=== PATIENT | male | born 1945 | race Caucasian/White ===

== ENCOUNTER 2017-03-22 19:21 | Observation (INO) | payer OTHER ==
[~2017-03-22] VITALS: Ht 170.2 cm; Wt 95.0 kg
[~2017-03-22 19:21] MED LIST: CYCL-36 PO; GABA300C3 PO; HYDR-3129 PO; PROT40TA PO; ZOLP10TA3 PO
[2017-03-22 19:29] VITALS: BP 112/65; PULSE 60; RESP 14; TEMP 98.9; O2SAT 94
[2017-03-22 19:40] VITALS: RESP 16; O2SAT 95
[2017-03-22] MEDS ORDERED: SODIUM CHLOR 0.9% 1000 ML INJ 1,000 ML IV ONE (19:49)
[2017-03-22] MEDS ORDERED: SODIUM CHLORIDE 0.9% FLUSH 10 ML FLUSH IVF PRN (20:00)
--- NOTE | 2017-03-22 20:20 | RADRPT ---
EXAM DATE/TIME: 03/22/2017 19:58 [facility] COMPARISON: No previous studies available for comparison. INDICATIONS : Short of breath. Weakness. MEDICAL HISTORY : None. SURGICAL HISTORY : Fusion, cervical. ENCOUNTER: Initial ACUITY: 1 day PAIN SCORE: 0/10 LOCATION: Bilateral chest FINDINGS: A single view of the chest demonstrates the lungs to be symmetrically aerated without evidence of mas s, infiltrate or effusion. The cardiomediastinal contours are unremarkable. Osseous structures are intact. CONCLUSION: No evidence of acute cardiopulmonary disease. Cory Mosquera MD on March 22, 2017 at 20:18 Board Certified Radiologist. This report was verified electronically.
--- NOTE | 2017-03-22 20:21 | PD ---
HPI Chief Complaint: General Weakness Time Seen by Provider: 19:49 Travel History International Travel<30 days: No Contact w/Intl Traveler<30days: No Traveled to known affect area: No History of Present Illness HPI This 71-year-old man, presents to the emergency department after syncopal episode. Reports he is feeling well, at home, on the commode. Strain to have a bowel movement. Got up to walk to the bedroom and reportedly passed out. Unclear if he hit his head or not. EMS was called. Patient states at this point he feels lightheaded and weak. He is a little bit of posterior headache. No chest pain, no trouble breathing. No vertigo. He otherwise had been feeling generally well and healthy. Denies any dark black stool or blood in his stool. No history of previous similar symptoms. History Past Medical History Narrative Medical Hyperlipidemia Neuropathy Social History Alcohol Use: No Tobacco Use: No Allergies-Medications (Allergen,Severity, Reaction): Coded Allergies: ciprofloxacin (Unverified Allergy, Unknown, 11/10/16) DIZZY Reported Meds & Prescriptions Reported Meds & Active Scripts Active Flexeril (Cyclobenzaprine HCl) 10 Mg Tab 10 Mg PO Q8 PRN Bryan 10/325 (Hydrocodone-Acetaminophen 10/325) 1 Tab Tab 1 Tab PO Q6H PRN Reported Protonix (Pantoprazole Sodium) 40 Mg Tabdr 40 Mg PO DAILY Ambien 10 Mg Tab (Zolpidem Tartrate) 10 Mg Tab 10 Mg PO HS Gabapentin 300 Mg Cap 300 Mg PO TID Review of Systems Except as stated in HPI: all other systems reviewed are Neg Physical Exam Narrative GENERAL: 71-year-old man, appears a little bit pale, somewhat clammy. SKIN: Pale clammy HEAD: Atraumatic. Normocephalic. EYES: Pupils equal and round. No scleral icterus. No injection or drainage. ENT: No nasal bleeding or discharge. Mucous membranes pink and moist. NECK: Trachea midline. No JVD. CARDIOVASCULAR: Heart rate slow, regular. Pulses symmetric and equal all 4 extremities. RESPIRATORY: No accessory muscle use. Clear to auscultation. Breath sounds equal bilaterally. GASTROINTESTINAL: Abdomen soft, non-tender, nondistended. Hepatic and splenic margins not palpable. MUSCULOSKELETAL: No obvious deformities. No edema. NEUROLOGICAL: Awake, but somewhat decreased alertness. Keep his eyes closed but answers questions easily.. Cranial nerves II through XII are intact. No nystagmus. Strength full and equal upper and lower extremities. Normal finger to nose. Normal [id number]. Sensation intact throughout. Normal speech. PSYCHIATRIC: Appropriate mood and affect; insight and judgment normal. Data Data Last Documented VS Vital Signs Date Time Temp Pulse Resp B/P (MAP) Pulse Ox O2 Delivery O2 Flow Rate FiO2 03/22/17 19:40 16 95 Room Air 03/22/17 19:29 98.9 60 112/65 (81) Orders Orders Electrocardiogram (03/22/17 19:49) Complete Blood Count With Diff (03/22/17 19:49) Comprehensive Metabolic Panel (03/22/17 19:49) Magnesium (Mg) (03/22/17 19:49) Troponin I (03/22/17 19:49) Chest, Single Ap (03/22/17 19:49) Ct Brain W/O Iv Contrast(Rout) (03/22/17 19:49) Blood Glucose (03/22/17 19:49) Ecg Monitoring (03/22/17 19:49) Iv Access Insert/Monitor (03/22/17 19:49) Oximetry (03/22/17 19:49) Sodium Chloride 0.9% Flush (Ns Flush) (03/22/17 20:00) Sodium Chlor 0.9% 1000 Ml Inj (Ns 1000 M (03/22/17 19:49) Ondansetron Inj (Zofran Inj) (03/22/17 20:33) Ondansetron Inj (Zofran Inj) (03/22/17 20:45) Place In Observation (03/22/17 ) Vital Signs (Adult) Q4H (03/22/17 21:52) Foam Molder / Telemetry ESTER.Q8H (03/22/17 21:52) Intake + Output ESTER.QSHIFT (03/22/17 21:52) Neuro Checks Q4H (03/22/17 21:52) Diet Heart Healthy (03/23/17 Breakfast) Sodium Chloride 0.9% Flush (Ns Flush) (03/22/17 22:00) Sodium Chloride 0.9% Flush (Ns Flush) (03/23/17 09:00) Complete Blood Count With Diff (03/23/17 06:00) Basic Metabolic Panel (Bmp) (03/23/17 06:00) Echo 2d Comp With Doppler (03/22/17 ) Us Carotid Arteries Comp Bilat (03/22/17 ) Orthostatic Blood Pressure (03/22/17 21:53) ^ Other Nursing Orders (03/22/17 21:54) Admit Order (Ed Use Only) (03/22/17 ) Labs Laboratory Tests Test 03/22/17 19:45 White Blood Count 8.6 TH/MM3 Red Blood Count 4.99 MIL/MM3 Hemoglobin 15.1 GM/DL Hematocrit 43.2 % Mean Corpuscular Volume 86.6 FL Mean Corpuscular Hemoglobin 30.2 PG Mean Corpuscular Hemoglobin Concent 34.9 % Red Cell Distribution Width 13.9 % Platelet Count 198 TH/MM3 Mean Platelet Volume 7.7 FL Neutrophils (%) (Auto) 69.2 % Lymphocytes (%) (Auto) 25.8 % Monocytes (%) (Auto) 3.9 % Eosinophils (%) (Auto) 0.5 % Basophils (%) (Auto) 0.6 % Neutrophils # (Auto) 5.9 TH/MM3 Lymphocytes # (Auto) 2.2 TH/MM3 Monocytes # (Auto) 0.3 TH/MM3 Eosinophils # (Auto) 0.0 TH/MM3 Basophils # (Auto) 0.0 TH/MM3 CBC Comment DIFF FINAL Differential Comment Blood Urea Nitrogen 15 MG/DL Creatinine 1.07 MG/DL Random Glucose 128 MG/DL Total Protein 7.3 GM/DL Albumin 3.2 GM/DL Calcium Level 8.4 MG/DL Magnesium Level 2.0 MG/DL Alkaline Phosphatase 139 U/L Aspartate Amino Transf (AST/SGOT) 26 U/L Alanine Aminotransferase (ALT/SGPT) 30 U/L Total Bilirubin 0.7 MG/DL Sodium Level 138 MEQ/L Potassium Level 3.8 MEQ/L Chloride Level 106 MEQ/L Carbon Dioxide Level 24.6 MEQ/L Anion Gap 7 MEQ/L Estimat Glomerular Filtration Rate 68 ML/MIN Troponin I LESS THAN 0.02 NG/ML MDM Medical Decision Making Medical Screen Exam Complete: Yes Emergency Medical Condition: Yes Interpretation(s) My review of EKG: Sinus bradycardia at a rate of 55, first-degree AV block with a CA interval 214, normal axis, normal no acute ischemia. LABS: CBC unremarkable. CMP unremarkable. Troponin negative. Head CT: No acute intracranial abnormality. Chest x-ray: No evidence of acute cardiopulmonary disease. Differential Diagnosis Symptomatic bradycardia, vasovagal episode, GI bleed, dehydration, hypotension, other Narrative Course Medical decision-making 70 year-old woman presents emergent department a single episode of syncope associated with lightheadedness. Looks a little bit dehydrated, little bit clammy. EKG shows her to cardio first-degree AV block. Return to the patient' s medications. Denies being on any negative chronotropic. Denies any history of hypertension. We'll check labs, reassess. FINAL: Initial workup negative. Given patient's age, we'll recommend observation for syncope. Diagnosis Primary Impression: Syncope Mike Trujillo MD Mar 22, 2017 20:21
--- NOTE | 2017-03-22 20:29 | RADRPT ---
EXAM DATE/TIME: 03/22/2017 20:12 [facility] COMPARISON: No previous studies available for comparison. INDICATIONS : Syncopal episode. RADIATION DOSE: 56.35 CTDIvol (mGy) MEDICAL HISTORY : None SURGICAL HISTORY : Back. ENCOUNTER: Initial ACUITY: 1 day PAIN SCALE: 0/10 LOCATION: cranial TECHNIQUE: Multiple contiguous axial images were obtained of the head. Using automated exposure control and adj ustment of the mA and/or kV according to patient size, radiation dose was kept as low as reasonably a chievable to obtain optimal diagnostic quality images. DICOM format image data is available electro nically for review and comparison. FINDINGS: CEREBRUM: The ventricles are normal for age. No evidence of midline shift, mass lesion, hemorrhage or acute in farction. No extra-axial fluid collections are seen. POSTERIOR FOSSA: The cerebellum and brainstem are intact. The 4th ventricle is midline. The cerebellopontine angle i s unremarkable. EXTRACRANIAL: 17 mm right maxillary mucous retention cyst. SKULL: The calvaria is intact. No evidence of skull fracture. CONCLUSION: No acute intracranial abnormality demonstrated. Cory Mosquera MD on March 22, 2017 at 20:27 Board Certified Radiologist. This report was verified electronically.
[2017-03-22] MEDS ORDERED: ONDANSETRON HCL 4 MG/2 ML VIAL ONE (20:33)
[2017-03-22] MEDS ORDERED: ONDANSETRON HCL 4 MG/2 ML VIAL IV ONE (20:45)
[2017-03-22 20:48] LABS: AUTOMATED NEUTROPHIL # 5.9 TH/MM3 (1.8-7.7); BASOPHIL % 0.6 % (0.0-2.0); EOSINOPHIL % 0.5 % (0.0-4.0); HEMATOCRIT 43.2 % (39.0-51.0); HEMOGLOBIN 15.1 GM/DL (13.0-17.0); LYMPH % 25.8 % (9.0-44.0); LYMPHOCYTE # 2.2 TH/MM3 (1.0-4.8); MEAN CELL VOLUME 86.6 FL (80.0-100.0); MEAN CORPUSCULAR HEMOGLOBIN 30.2 PG (27.0-34.0); MEAN CORPUSCULAR HGB CONC 34.9 % (32.0-36.0); MEAN PLATELET VOLUME 7.7 FL (7.0-11.0); MONO % 3.9 % (0.0-8.0); MONOCYTE # 0.3 TH/MM3 (0-0.9); NEUT % 69.2 % (16.0-70.0); PLATELET COUNT 198 TH/MM3 (150-450); RED BLOOD COUNT 4.99 MIL/MM3 (4.50-5.90); RED CELL DISTRIBUTION WIDTH 13.9 % (11.6-17.2); WHITE BLOOD COUNT 8.6 TH/MM3 (4.0-11.0)
[2017-03-22 21:07] LABS: ALBUMIN 3.2 GM/DL (3.4-5.0); AST (GOT) 26 U/L (15-37); BICARBONATE 24.6 MEQ/L (21.0-32.0); BLOOD UREA NITROGEN 15 MG/DL (7-18); CALCIUM 8.4 MG/DL (8.5-10.1); CHLORIDE 106 MEQ/L (98-107); CREATININE 1.07 MG/DL (0.60-1.30); GLOMERULAR FILTRATION RATE 68 ML/MIN (>89); GLUCOSE,RANDOM 128 MG/DL (74-106); SODIUM (NA) 138 MEQ/L (136-145)
[2017-03-22 21:13] LABS: ALKALINE PHOSPHATASE 139 U/L (45-117); ALT (GPT) 30 U/L (12-78); TOTAL BILIRUBIN ADULT 0.7 MG/DL (0.2-1.0); TOTAL PROTEIN 7.3 GM/DL (6.4-8.2); TROPONIN I LESS THAN 0.02 NG/ML (0.02-0.05)
[2017-03-22] MEDS ORDERED: SODIUM CHLORIDE 0.9% FLUSH 10 ML FLUSH IV FLUSH PRN (22:00)
--- NOTE | 2017-03-22 23:10 | HHI.HP ---
[facility] Mateusz Hurtado MD Admission Diagnosis syncope Diagnoses: Travel History International Travel<30 Days: No Contact w/Intl Traveler <30 Da: No Traveled to Known Affected Are: No History of Present Illness 71-year-old male with a past medical history significant for hyperlipidemia, GERD and restless leg syndrome presents to the emergency department after suffering a syncopal event. The patient was straining with defecation when he felt lightheaded and lost consciousness. He denies falling as his partner was able to catch him. He reports he continued to feel dizzy and lightheaded after the incident. He laid down for a little while but the feeling did not resolve. He reports he is much improved at this time. He denies any associated chest pain or shortness of breath. Review of Systems Denies fever or chills Denies blurry vision, otorrhea, rhinorrhea Denies sore throat and cough No chest pain, palpitations, shortness of breath No abdominal pain Denies constipation/diarrhea/nausea/vomiting Denies muscle pain/weakness No rashes Past Family Social History Past Medical History OA RLS HLD GERD Past Surgical History Bilateral knee replacement Left back fusion Neck fusion Left ankle surgery Reported Medications Reported Meds & Active Scripts Active Flexeril (Cyclobenzaprine HCl) 10 Mg Tab 10 Mg PO Q8 PRN Harwood 10/325 (Hydrocodone-Acetaminophen 10/325) 1 Tab Tab 1 Tab PO Q6H PRN Reported Protonix (Pantoprazole Sodium) 40 Mg Tabdr 40 Mg PO DAILY Ambien 10 Mg Tab (Zolpidem Tartrate) 10 Mg Tab 10 Mg PO HS Gabapentin 300 Mg Cap 300 Mg PO TID Allergies: Coded Allergies: ciprofloxacin (Unverified Allergy, Unknown, 11/10/16) DIZZY Family History Father of [place] at age 62. Social History Denies tobacco. Rare alcohol. Denies illicit drugs. Physical Exam Vital Signs Vital Signs Date Time Temp Pulse Resp B/P (MAP) Pulse Ox O2 Delivery O2 Flow Rate FiO2 03/22/17 19:40 16 95 Room Air 03/22/17 19:29 98.9 60 14 112/65 (81) 94 Physical Exam GENERAL: Obese, male lying in bed SKIN: No rashes, ecchymoses or lesions. Cool and dry. HEAD: Atraumatic. Normocephalic. No temporal or scalp tenderness. EYES: Pupils equal round and reactive. Extraocular motions intact. No scleral icterus. No injection or drainage. ENT: Nose without bleeding, purulent drainage or septal hematoma. Throat without erythema, tonsillar hypertrophy or exudate. Uvula midline. Airway patent. NECK: Trachea midline. No JVD or lymphadenopathy. Supple, nontender, no meningeal signs. CARDIOVASCULAR: Regular rate and rhythm without murmurs, gallops, or rubs. RESPIRATORY: Clear to auscultation. Breath sounds equal bilaterally. No wheezes , rales, or rhonchi. GASTROINTESTINAL: Abdomen soft, non-tender, nondistended. No hepato-splenomegaly , or palpable masses. No guarding. MUSCULOSKELETAL: Extremities without clubbing, cyanosis, or edema. No joint tenderness, effusion, or edema noted. No calf tenderness. NEUROLOGICAL: Awake and alert. Cranial nerves II through XII intact. Motor and sensory grossly within normal limits. Normal speech. Laboratory Laboratory Tests Test 03/22/17 19:45 White Blood Count 8.6 Red Blood Count 4.99 Hemoglobin 15.1 Hematocrit 43.2 Mean Corpuscular Volume 86.6 Mean Corpuscular Hemoglobin 30.2 Mean Corpuscular Hemoglobin Concent 34.9 Red Cell Distribution Width 13.9 Platelet Count 198 Mean Platelet Volume 7.7 Neutrophils (%) (Auto) 69.2 Lymphocytes (%) (Auto) 25.8 Monocytes (%) (Auto) 3.9 Eosinophils (%) (Auto) 0.5 Basophils (%) (Auto) 0.6 Neutrophils # (Auto) 5.9 Lymphocytes # (Auto) 2.2 Monocytes # (Auto) 0.3 Eosinophils # (Auto) 0.0 Basophils # (Auto) 0.0 CBC Comment DIFF FINAL Differential Comment Blood Urea Nitrogen 15 Creatinine 1.07 Random Glucose 128 Total Protein 7.3 Albumin 3.2 Calcium Level 8.4 Magnesium Level 2.0 Alkaline Phosphatase 139 Aspartate Amino Transf (AST/SGOT) 26 Alanine Aminotransferase (ALT/SGPT) 30 Total Bilirubin 0.7 Sodium Level 138 Potassium Level 3.8 Chloride Level 106 Carbon Dioxide Level 24.6 Anion Gap 7 Estimat Glomerular Filtration Rate 68 Troponin I LESS THAN 0.02 Result Diagram: 03/22/17194403/22/171944 Caprini VTE Risk Assessment Caprini VTE Risk Assessment: Mod/High Risk (score >= 2) Caprini Risk Assessment Model Point Value = 1 Point Value = 2 Point Value = 3 Point Value = 5 Age 41-60 Minor surgery BMI > 25 kg/m2 Swollen legs Varicose veins or History of unexplained or recurrent spontaneous Oral contraceptives or hormone replacement Sepsis (< 1 month) Serious lung disease, including pneumonia (< 1 month) Abnormal pulmonary function Acute myocardial infarction Congestive heart failure (< 1 month) History of inflammatory bowel disease Medical patient at bed rest Age 61-74 Arthroscopic surgery Major open surgery (> 45 min) Laparoscopic surgery (> 45 min) Malignancy Confined to bed (> 72 hours) Immobilizing plaster cast Central venous access Age >= 75 History of VTE Family history of VTE Factor V Leiden Prothrombin [id number] Lupus anticoagulant Anticardiolipin antibodies Elevated serum homocysteine Heparin-induced thrombocytopenia Other congenital or acquired thrombophilia Stroke (< 1 month) Elective arthroplasty Hip, pelvis, or leg fracture Acute spinal cord injury (< 1 month) Prophylaxis Regimen Total Risk Factor Score Risk Level Prophylaxis Regimen 0-1 Low Early ambulation 2 Moderate Order ONE of the following: *Sequential Compression Device (SCD) *Heparin 5000 units SQ BID 3-4 Higher Order ONE of the following medications: *Heparin 5000 units SQ TID *Enoxaparin/Lovenox 40 mg SQ daily (WT < 150 kg, CrCl > 30 mL/min) *Enoxaparin/Lovenox 30 mg SQ daily (WT < 150 kg, CrCl > 10-29 mL/min) *Enoxaparin/Lovenox 30 mg SQ BID (WT < 150 kg, CrCl > 30 mL/min) AND/OR *Sequential Compression Device (SCD) 5 or more Highest Order ONE of the following medications: *Heparin 5000 units SQ TID (Preferred with Epidurals) *Enoxaparin/Lovenox 40 mg SQ daily (WT < 150 kg, CrCl > 30 mL/min) *Enoxaparin/Lovenox 30 mg SQ daily (WT < 150 kg, CrCl > 10-29 mL/min) *Enoxaparin/Lovenox 30 mg SQ BID (WT < 150 kg, CrCl > 30 mL/min) AND *Sequential Compression Device (SCD) Assessment and Plan Assessment and Plan Assessment/plan: 1. Syncope Suspect secondary to vasovagal response during defecation Carotid ultrasound/Echo pending 2. GERD Continue home pantoprazole once medication reconciliation complete 3. RLS Continue home gabapentin FEN Heart healthy diet Electrolytes: monitor and replete prn Heparin Nilam Brar MD Mar 22, 2017 23:10
[2017-03-22] MEDS ORDERED: ATOR40TA16 PO (23:56)
[2017-03-23 00:03] VITALS: PULSE 71
[2017-03-23 03:15] VITALS: BP 121/68; PULSE 68; RESP 18; TEMP 98.2; O2SAT 97
[2017-03-23 03:21] VITALS: PULSE 72
[2017-03-23 05:06] VITALS: BP_SYST 109; BP_SYST 123; BP_SYST 98; BP_DIAS 59; BP_DIAS 62; BP_DIAS 67; PULSE 69; RESP 18; TEMP 98.2; O2SAT 97
[2017-03-23] MEDS ORDERED: HEPARIN SODIUM - SQ 10,000 UNITS/ML VIAL SQ SCH (06:00)
[2017-03-23 08:00] VITALS: PULSE 72
--- NOTE | 2017-03-23 08:06 | RADRPT ---
EXAM DATE/TIME: 03/23/2017 07:36 [facility] COMPARISON: No previous studies available for comparison. INDICATIONS : Syncope. MEDICAL HISTORY : Gastroesophageal reflux disease. Osteoarthritis. Hyperlipidemia. Neuropathy. SURGICAL HISTORY : Bilateral knee replacements. Back surgery. ENCOUNTER: Initial ACUITY: 1 day PAIN SCORE: 0/10 LOCATION: Bilateral neck PEAK SYSTOLIC VELOCITIES (cm/sec): ICA/CCA RATIO: Right: 0.8 Left: 0.8 ICA: Right: 75 Left: 71 CCA: Right: 98 Left: 91 ECA: Right: 102 Left: 84 VERTEBRAL: Right: 42 antegrade Left: 45 antegrade Elevated flow velocities and ICA/CCA ratios have been found to correlate with increased degrees of vessel stenosis, calculated as percentage of diameter relative to a normal segment of distal ICA/CCA FINDINGS: RIGHT CAROTID: No significant stenosis is visualized. The waveforms are within normal limits. LEFT CAROTID: No significant stenosis is visualized. The waveforms are within normal limits. VERTEBRAL ARTERIES: Antegrade flow is seen in both vertebral arteries. MISCELLANEOUS: None. CONCLUSION: No evidence of flow-limiting carotid stenosis. Cory Higginbotham MD on March 23, 2017 at 8:04 Board Certified Radiologist. This report was verified electronically.
[2017-03-23] MEDS ORDERED: GABAPENTIN 300 MG CAP PO SCH (09:00)
[2017-03-23] MEDS ORDERED: ATORVASTATIN 40 MG TAB PO SCH (09:00)
[2017-03-23] MEDS ORDERED: PANTOPRAZOLE SOD 40 MG DELAYED RELEASE TAB PO SCH (09:00)
[2017-03-23] MEDS ORDERED: SODIUM CHLORIDE 0.9% FLUSH 10 ML FLUSH IV FLUSH SCH (09:00)
--- NOTE | 2017-03-23 09:58 | HHI.DCPOC ---
Discharge Care Plan Diagnosis: (1) Syncope Goals to Promote Your Health * To prevent worsening of your condition and complications * To maintain your health at the optimal level Directions to Meet Your Goals Take your medications as prescribed Follow your dietary instruction Follow activity as directed Keep your appointments as scheduled Take your immunizations and boosters as scheduled If your symptoms worsen call your PCP, if no PCP go to Urgent Care Center or Emergency Room Smoking is Dangerous to Your Health. Avoid second hand smoke Call the 24-hour hour crisis hotline for domestic abuse at Analy Aguilar PA-C Mar 23, 2017 09:58
--- NOTE | 2017-03-23 11:03 | HHI.PR ---
Subjective Remarks Follow up for syncope. The patient explains that yesterday he didn't eat much throughout the day, no breakfast, then had a sub from [facility] that "didn't sit well" with him and his stomach didn't feel right throughout the day. Last night he sat down on the toilet, had a large mixed hard stool and diarrhea bowel movement, became acutely lightheaded and passed out. This morning he feels much better. He states he has some mild lightheadedness but he is used to this due to his chronic vertigo. He wants to go home. Discussed stopping his gabapentin for now, patient agrees. Also discussed his positive orthostatics, counseled on slow transition and wearing tamera hose, patient verbalized understanding. He plans to follow up with his PCP Dr. Hurtado. He has no other medical complaints at this time including no headache, chest pain, palpitations, shortness of breath, or abdominal complaints. Objective Vitals Vital Signs Date Time Temp Pulse Resp B/P (MAP) Pulse Ox O2 Delivery O2 Flow Rate FiO2 03/23/17 05:06 98.2 69 18 123/59 (80) 97 109/67 (81) 98/62 (74) 03/23/17 03:21 72 03/23/17 03:15 98.2 68 18 121/68 (85) 97 03/23/17 00:03 71 03/22/17 19:40 16 95 Room Air 03/22/17 19:29 98.9 60 14 112/65 (81) 94 Result Diagram: 03/22/17194403/22/171944 Imaging Last Impressions Carotid Artery Ultrasound 03/23/17 0000 Signed Impressions: Service Date/Time: Thursday, March 23, 2017 07:36 - CONCLUSION: No evidence of flow-limiting carotid stenosis. Cory Higginbotham MD Head CT 03/22/171948 Signed Impressions: Service Date/Time: Wednesday, March 22, 2017 20:12 - CONCLUSION: No acute intracranial abnormality demonstrated. Cory Mosquera MD Chest X-Ray 03/22/171948 Signed Impressions: Service Date/Time: Wednesday, March 22, 2017 19:58 - CONCLUSION: No evidence of acute cardiopulmonary disease. Cory Mosquera MD Objective Remarks GENERAL: Well-nourished, well-developed pleasant elderly male patient in NAD. SKIN: Warm and dry. No rash. HEENT: Normocephalic. Atraumatic. Pupils equal and round. Mucous membranes pink and moist. CARDIOVASCULAR: Regular rate and rhythm. S1, S2 noted. No murmur appreciated. RESPIRATORY: No accessory muscle use. Clear to auscultation. Breath sounds equal bilaterally. GASTROINTESTINAL: Abdomen soft, non-tender, nondistended. Normoactive bowel sounds x4. MUSCULOSKELETAL: No obvious deformities. Extremities without clubbing, cyanosis , or edema. NEUROLOGICAL: Awake and alert. No obvious cranial nerve deficits. Motor grossly within normal limits. 5/5 muscle strength in bilateral upper and lower extremities. Normal speech. PSYCHIATRIC: Appropriate mood and affect; insight and judgment normal. Medications and IVs Current Medications Medications (Trade) Dose Ordered Sig/Juan Route Start Time Stop Time Status Last Admin (NS Flush) 2 ml UNSCH PRN IV FLUSH 03/22/17 22:00 (NS Flush) 2 ml BID IV FLUSH 03/23/17 09:00 03/23/17 10:18 (Heparin Inj) 5,000 units Q8HR SQ 03/23/17 06:00 03/23/17 05:12 (Lipitor) 40 mg DAILY PO 03/23/17 09:00 03/23/17 10:17 (Protonix) 40 mg DAILY PO 03/23/17 09:00 03/23/17 10:17 (Ambien) 10 mg HS PO 03/23/17 21:00 A/P Problem List: (1) Syncope ICD Code: R55 - Syncope and collapse Status: Acute Assessment and Plan 71-year-old male with history of Restless Leg Syndrome, GERD, HLD, OA, presents after syncopal event Syncope: Strongly suspect secondary to vasovagal response during defecation, patient straining with large BM just prior to event. -Carotid U/S unremarkable -Echocardiogram completed, unremarkable with EF 50-55% -Orthostatics mildly positive, counseled patient on slow transitions and tamera hose, patient verbalized understanding -Patient's gabapentin also possibly contributing to symptoms, discussed with patient to stop medication for now, he verbalized understanding -Consult PT for eval, patient uses walker at baseline at home -Symptoms much improved, stable for discharge GERD: Chronic, Continue home pantoprazole. RLS: Discontinued home gabapentin as above, recommended outpatient f/up with PCP prior to initiating any new medications. Discharge Planning Discharge patient to home Condition on discharge: Improved Regular Diet as tolerated Ad Margarita activity Rx written: discontinued gabapentin Follow-up with primary care physician Dr. Hurtado within 2-3 days Analy Aguilar PA-C Mar 23, 2017 11:03
[2017-03-23 11:45] LABS: BICARBONATE 25.2 MEQ/L (21.0-32.0); CALCIUM 8.4 MG/DL (8.5-10.1); CREATININE 0.88 MG/DL (0.60-1.30)
--- NOTE | 2017-03-23 12:35 | ECHRPT ---
Indication: SYNCOPE CONCLUSIONS Technically very very difficult studay. Normal left ventricular size. Wall thickness is normal. Regional wall motion abnormalities cannot be excluded. The left ventricular systolic function is low normal with an estimated ejection fraction in the rang e of 50- 55%. No definite valvular abnormalities are noted. BP: 129 / 59 HR: 72 Rhythm: MEASUREMENTS (Male / Female) Normal Values Technical Quality:Technically difficult study 2D ECHO LV Diastolic Diameter PLAX 4.7 cm 4.2 - 5.9 / 3.9 - 5.3 cm LV Systolic Diameter PLAX 3.7 cm IVS Diastolic Thickness 0.9 cm 0.6 - 1.0 / 0.6 - 0.9 cm LVPW Diastolic Thickness 0.8 cm 0.6 - 1.0 / 0.6 - 0.9 cm LV Relative Wall Thickness 0.4 LA Systolic Diameter LX 4.2 cm 3.0 - 4.0 / 2.7 - 3.8 cm M-MODE Aortic Root Diameter MM 3.5 cm AV Cusp Separation MM 1.7 cm DOPPLER Mitral E Point Velocity 82.9 cm/s Mitral A Point Velocity 104.0 cm/s Mitral E to A Ratio 0.8 TR Peak Velocity 117.0 cm/s TR Peak Gradient 5.5 mmHg FINDINGS LEFT VENTRICLE Technically very very difficult studay. Normal left ventricular size. Wall thickness is normal. Regional wall motion abnormalities cannot be excluded. The left ventricular systolic function is low normal with an estimated ejection fraction in the rang e of 50- 55%. RIGHT VENTRICLE Normal right ventricular size and systolic function. LEFT ATRIUM The left atrial size is normal. RIGHT ATRIUM The right atrial size is normal. ATRIAL SEPTUM Normal atrial septal thickness without atrial level shunting by limited color doppler interrogation. AORTA The aortic root and proximal ascending aorta are normal in size on limited imaging. MITRAL VALVE Structurally normal mitral valve. No mitral valve stenosis or regurgitation. AORTIC VALVE Trileaflet aortic valve. No aortic valve stenosis or regurgitation. TRICUSPID VALVE Structurally normal tricuspid valve. No tricuspid valve stenosis or regurgitation. PULMONARY VALVE The pulmonary valve is not well visualized. VESSELS The inferior vena cava is normal in size. PERICARDIUM No pericardial effusion. Hernandez Sears MD (Electronically Signed) Final Date:23 March 2017 12:34
--- NOTE | 2017-03-23 14:55 | EKG ---
Date Performed: 03/22/2017 Time Performed: 19:28:04 PTAGE: 71 years EKG: SINUS BRADYCARDIA WITH SINUS ARRHYTHMIA WITH FIRST DEGREE AV BLOCK ABNORMAL ECG NO PREVIOUS TRACING DOCTOR: Mike Joseph Interpretating Date/Time 03/23/2017 14:55:00
[2017-03-23] MEDS ORDERED: ZOLPIDEM TARTRATE 10 MG TAB PO SCH (21:00)
== END 2017-03-23 12:01 | disposition home or self-care (01) ==
LOC: NEPE 19:21 → NEDA 21:57 → NEPFCDU 22:55
PROVIDERS: ADMIT Hospitalist; ATTEND Hospitalist
DX: R55 Syncope and collapse (principal); G25.81 Restless legs syndrome; E86.0 Dehydration; E78.5 Hyperlipidemia, unspecified; I44.30 Unspecified atrioventricular block; K21.9 Gastro-esophageal reflux disease without esophagitis; Z96.653 Presence of artificial knee joint, bilateral; Z98.1 Arthrodesis status
CPT/HCPCS: 70450; 71010; 80048; 80053; 83735; 84484; 85025; 93005; 93306; 93880; 96361; 96372; 96374; 97161; 99285; G0378; G8987; G8988; J1644; J2405; J7030